=== PATIENT | male | born 1980 | race Caucasian/White ===

== ENCOUNTER 2017-01-12 18:52 | Emergency (ER) | payer OTHER ==
[~2017-01-12] VITALS: Ht 182.9 cm; Wt 95.2 kg
[2017-01-12 18:58] VITALS: TEMP 36.8; Ht 182.9 cm; Wt 95.2 kg
[2017-01-12] MEDS ORDERED: IBUPROFEN 600 MG TAB PO STA (19:11)
[2017-01-12] MEDS ORDERED: ACETAMINOPHEN 500 MG TAB PO STA (19:11)
--- NOTE | 2017-01-12 19:23 | EMERGENCY ROOM VISIT NOTE ---
History Report prepared by Tristan: Ambrocio Goyal Under the Supervision of: Dr. Chandler Mixon M.D. First contact with patient: 19:04 Chief Complaint: SHOULDER DISLOCATION Stated Complaint: DISLOCATED SHOULDER History of Present Illness The patient is a 36 year old male who presents to the Emergency Room with a dislocated left shoulder that occurred prior to arrival. He currently rates his discomfort a 7/10 in severity. The patient states that he was playing softball, and he dove for a ground ball 35 minutes ago. He reports that he lost feeling in his fingers. The patient denies loss of consciousness and trauma to his head. The patient notes that he does not have any other past medical problems. He states that he has seen an orthopedic previously for his foot. Source of History: patient Onset: prior to arrival Position: shoulder (left) Symptom Intensity: 7/10 Quality: other Timing: constant Associated Symptoms: + numbness (fingers), No LOC Note: Denies: trauma to the head Review of Systems See HPI for pertinent positives & negatives. A total of 10 systems reviewed and were otherwise negative. Past Medical & Surgical No previous shoulder dislocations. Family History Cancer Diabetes mellitus Hypertension Social History Smoking Status: Current Every Day Smoker Alcohol Use: occasionally Drug Use: none Marital Status: in relationship Housing Status: lives with significant other Occupation Status: employed Current/Historical Medications No Active Prescriptions or Reported Meds Allergies Coded Allergies: No Known Allergies (Unverified Allergy, Unknown, 10/22/04) Physical Exam Vital Signs Date Time Temp Pulse Resp B/P (MAP) Pulse Ox O2 Delivery O2 Flow Rate FiO2 01/12/17 18:58 36.8 95 18 148/92 96 Room Air Physical Exam GENERAL: Patient is in mild distress secondary to pain. HEENT: No acute trauma, normocephalic atraumatic, mucous membranes moist, no nasal congestion, no scleral icterus. NECK: No stridor, no adenopathy, no meningismus, trachea is midline. LUNGS: Clear to auscultation bilaterally, no wheeze, no rhonchi, breath sounds equal. HEART: Without murmurs gallops or rubs, regular rate and rhythm. ABDOMEN: Soft, nontender, bowel sounds positive, no hernias, no peritonitis. EXTREMITIES: Obvious anterior dislocation of the left shoulder, pain to move the shoulder, diffusely tender to palpation, strong distal radial pulse. NEUROLOGIC: Oriented x 3, no acute motor or sensory deficits, no focal weakness. SKIN: No rash, no jaundice, no diaphoresis. Medical Decision & Procedures ER Provider Diagnostic Interpretation: X-ray results as stated below per interpretation by me and the radiologist: LEFT SHOULDER MIN 2 VIEWS ROUTINE CLINICAL HISTORY: Dislocation status post reduction COMPARISON: None. DISCUSSION: 2 views reveal no acute fractures or dislocations. IMPRESSION: No fractures or dislocations identified. Electronically signed by: Artur Walton M.D. 01/12/2017 8:01 PM Dictated Date/Time: 01/12/2017 8:01 PM Medications Administered Medications (Trade) Dose Ordered Sig/Ghazala Route Start Time Stop Time Status Last Admin Dose Admin Ibuprofen (Motrin Tab) 600 mg NOW STAT PO 01/12/17 19:11 01/12/17 19:13 DC 01/12/17 19:28 600 MG Acetaminophen (Tylenol Tab) 1,000 mg NOW STAT PO 01/12/17 19:11 01/12/17 19:13 DC 01/12/17 19:28 1,000 MG Procedure Shoulder reduction: Patient was placed on the stretcher prone. The arm and shoulder were positioned so as to hang over the edge of the stretcher. Patient was allowed to relax. Using scapular manipulation as well as some humeral traction, the dislocated shoulder was easily reduced. There were no complications and the patient tolerated the procedure well. The patient was then sent to x-ray for postreduction films. ED Course 1903: The patient was evaluated in room B02. A complete history and physical exam was performed. 1910: Ordered Acetaminophen 1000 mg PO, Ibuprofen 600 mg PO 2005: Reevaluated the patient. Discussed results and discharge instructions: He verbalized understanding and agreement. The patient is ready for discharge. Medical Decision Differential diagnosis includes: clavicle fracture, shoulder fracture, shoulder dislocation, neurovascular compromise. The patient presents with a possible left shoulder dislocation. He had some numbness in his fingers. He did not injure his head or neck, he was not short of breath and there was no abdominal pain. The patient had an obvious anterior left shoulder dislocation. The shoulder was reduced without complication with the patient lying supine on the stretcher. Some scapular manipulation and humeral traction was required. Films of the shoulder after reduction show the shoulder to be in proper position , no dislocation. There was no fracture. The patient has a strong distal left radial pulse. His left radial ulnar and median nerve are intact. He is currently icing the shoulder and the left shoulder has been placed in a sling. The patient is being discharged to follow with orthopedics. He will be wearing the sling for now, Motrin for inflammation, ice for swelling. Impression Primary Impression: Anterior dislocation of left shoulder Scribe Attestation The scribe's documentation has been prepared under my direction and personally reviewed by me in its entirety. I confirm that the note above accurately reflects all work, treatment, procedures, and medical decision making performed by me. Departure Information Dispostion Home / Self-Care Prescriptions No Active Prescriptions or Reported Meds Referrals Je Veras M.D. (PCP) Carlos Faye M.D. Forms HOME CARE DOCUMENTATION FORM, IMPORTANT VISIT INFORMATION Patient Instructions My [facility] Additional Instructions motrin 600 mg 3x per day for 5 days may use tylenol otc for pain as well ice to the shoulder for 30 minutes at a time several times per day for next few days see orthopedics--call for an appt tomorrow wear the sling for the next few days--may take the sling off to shower
--- NOTE | 2017-01-12 20:02 | DIAGNOSTIC IMAGING REPORT ---
LEFT SHOULDER MIN 2 VIEWS ROUTINE CLINICAL HISTORY: Dislocation status post reduction COMPARISON: None. DISCUSSION: 2 views reveal no acute fractures or dislocations. IMPRESSION: No fractures or dislocations identified. Electronically signed by: Artur Walton M.D. 01/12/2017 8:01 PM Dictated Date/Time: 01/12/2017 8:01 PM
[2017-01-12 20:23] VITALS: BP 142/88; PULSE 86; O2SAT 99
== END 2017-01-12 20:23 | disposition home or self-care (01) ==
LOC: C.EDB 18:54
DX: S43.015A Anterior dislocation of left humerus, initial encounter (principal); W22.8XXA Striking against or struck by other objects, initial encounter; Z83.3 Family history of diabetes mellitus; Z82.49 Family history of ischemic heart disease and other diseases of the circulatory system; F17.200 Nicotine dependence, unspecified, uncomplicated